=== PATIENT | female | born 2000 | race Two or more races ===

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

== ENCOUNTER 2025-06-12 22:04 | Emergency (ER) | payer OTHER ==
[~2025-06-12] VITALS: Ht 160 cm; Wt 130.2 kg
[2025-06-12 22:58] VITALS: BP 120/86; O2SAT 99
[2025-06-13] MEDS ORDERED: FAMOTIDINE/PF 20 MG/2 ML VIAL IV PUSH STA (02:33)
[2025-06-13] MEDS ORDERED: ONDANSETRON HCL 2 MG/ML VIAL IV STA (02:34)
[2025-06-13] MEDS ORDERED: SUCRALFATE 1 G TABLET PO STA (02:35)
[2025-06-13 03:11] LABS: BASO % 0.7 % (0.1-1.2); EOS # 0.08 (0.04-0.54); EOS % 0.8 % (0.7-7.0); LYMPH # 2.65 (1.18-3.74); LYMPH % 25.4 % (19.3-53.1); MEAN PLATELET VOLUME 9.00 fl (9.4-12.4); MONO # 0.83 (0.24-0.82); MONO % 8.0 % (4.7-12.5); NEUT # 6.78 (1.56-6.13); NEUT % 64.9 % (34.0-71.1); RED CELL DISTRIBUTION WIDTH 15.2 % (11.6-14.4)
[2025-06-13] MEDS ORDERED: PEPCID40 MG PO (04:59)
[2025-06-13] MEDS ORDERED: ZOFRAN8 MG PO (04:59)
== END 2025-06-13 05:02 ==
LOC: ER 22:04
PROVIDERS: General Practice
DX: R10.13 Epigastric pain (principal); R10.9 Unspecified abdominal pain